=== PATIENT | male | born 1950 | race Caucasian/White ===

== ENCOUNTER → 2018-06-01 | Day surgery (SDC) | payer MEDICARE ==
[2018-05-27 16:02] LABS: BASOPHILS # (AUTO) 0.1 (0.0-0.1); EOSINOPHILS # (AUTO) 0.2 (0.0-0.4); EOSINOPHILS % 2.4 % (0.0-6.0); HEMATOCRIT 34.1 % (38.2-49.6); HEMOGLOBIN 11.9 g/dL (14.0-18.0); LYMPHOCYTES # (AUTO) 2.2 (1.0-3.2); LYMPHOCYTES % 21.8 % (18.0-39.1); MEAN CORPUSCULAR HEMOGLOBIN 31.1 pg (28-32); MEAN CORPUSCULAR HGB CONC 34.9 g/dL (31-35); MONOCYTES # (AUTO) 1.3 (0.2-0.8); MONOCYTES % 12.8 % (4.4-11.3); NEUTROPHILS # (AUTO) 6.2 (2.1-6.9); NEUTROPHILS % 61.6 % (38.7-80.0); PLATELET COUNT 304 x10e3/uL (140-360); RED BLOOD COUNT 3.83 x10e6/uL (4.3-5.7)
[~2018-06-01] MED LIST: ASPIRIN325 MG PO; CLINDAMYCIN TOP; CLOTRIMAZOLE-BE15 GM TOP; FLUOCINONIDE-E15 GM TOP; ISOSORBIDE MONO30 MG PO; LEVOTHYROXINE75 MCG PO; LOSARTAN POTAS100 MG PO; METOPROLOL TART50 MG PO; MIDAZOLAM HCL 2 MG/2 ML VIAL ONE; OMEPRAZOLE40 MG PO; PLAVIX75 MG PO; PROPOFOL IV EMULSION 10 MG/ML 20 ML VIAL ONE
== END | disposition home or self-care (01) ==
LOC: OR 10:46
PROVIDERS: ATTEND Internal Medicine Gastroenterology
DX: Z12.11 Encounter for screening for malignant neoplasm of colon (principal); D12.5 Benign neoplasm of sigmoid colon; I10 Essential (primary) hypertension; K21.9 Gastro-esophageal reflux disease without esophagitis; I25.2 Old myocardial infarction; E78.5 Hyperlipidemia, unspecified; K44.9 Diaphragmatic hernia without obstruction or gangrene; E03.9 Hypothyroidism, unspecified; Z01.810 Encounter for preprocedural cardiovascular examination; Z01.812 Encounter for preprocedural laboratory examination; Z79.82 Long term (current) use of aspirin; Z79.02 Long term (current) use of antithrombotics/antiplatelets; Z86.73 Personal history of transient ischemic attack (TIA), and cerebral infarction without residual deficits; Z85.21 Personal history of malignant neoplasm of larynx; Z87.891 Personal history of nicotine dependence; Z80.0 Family history of malignant neoplasm of digestive organs
CPT/HCPCS: 36415; 45385; 85025; 88305; 93005; J2250